=== PATIENT | male | born 1960 | race American Indian/Alaskan Native ===

== ENCOUNTER 2020-02-12 06:44 | Day surgery (SDC) | payer MEDICARE ==
[2020-02-12 07:45] LABS: Basophils % (Auto) 0.8 % (0.0-1.8); Eosinophils # (Auto) 0.2 K/mm3 (0.0-0.4); Eosinophils % (Auto) 3.2 % (0.0-4.3); Hematocrit 41.2 % (35.5-45.6); Hemoglobin 13.8 gm/dl (11.8-15.2); Lymphocytes # (Auto) 2.1 K/mm3 (1.2-5.4); Lymphocytes % (Auto) 35.9 % (13.4-35.0); Mean Corpuscular HGB Conc 33 % (32-34); Mean Corpuscular Volume 94 fl (84-94); Monocytes # (Auto) 0.8 K/mm3 (0.0-0.8); Monocytes % (Auto) 13.1 % (0.0-7.3); Platelet Count 162 K/mm3 (140-440); Red Blood Count 4.39 M/mm3 (3.65-5.03)
[2020-02-12 07:55] LABS: INR 0.98 (0.87-1.13)
[2020-02-12 07:56] LABS: Partial Thromboplastin Time 26.2 Sec. (24.2-36.6)
[2020-02-12 08:02] LABS: BUN/Creatinine Ratio 13; Blood Urea Nitrogen 13 mg/dL (9-20); Calcium 9.1 mg/dL (8.4-10.2); Hemolysis Index 16
--- NOTE | 2020-02-12 08:05 | Short Stay Summary ---
Short Stay Documentation Date of service: 02/12/20 Narrative H&P: The patient is a 60-year-old male with history of tobacco abuse and peripheral vascular disease who presented for his 1 year follow-up with complaints of left lower extremity rest pain. He had a previous history of bilateral lower extremity claudication that have recently progressed to rest pain. His follow- up included bilateral lower extremity arterial duplex with ABIs that revealed aortoiliac occlusive disease on the left lower extremity with bilateral tibial disease. He had a diagnostic arteriogram that demonstrated bilateral iliac artery stenosis with near total occlusion of the left external iliac artery as well as bilateral lower extremity tibial disease suggestive of Buerger's disease. Per the patient and his he has stopped smoking with the use of nicotine patches. He has no other complaints at this time. - History Past Medical History: PVD, other (Sciatica, history of PACs) Past Surgical History: Other (Back surgery) Social history: smoking (Recently stopped smoking after 50 pack years) - Allergies and Medications Current Medications: Allergies No Known Allergies Allergy (Verified 11/05/15 08:23) Home Medications Medication Instructions Recorded Confirmed Last Taken Type Diclofenac Sodium 75 mg PO BID #20 tablet. 11/05/15 Unknown Rx methOCARBAMOL [Robaxin TAB] 500 mg PO Q6H PRN #20 tablet 11/05/15 Unknown Rx traMADoL [Ultram 50 MG tab] 50 mg PO Q6HR PRN #14 tablet 11/05/15 Unknown Rx Active Medications Sodium Chloride (Nacl 0.9% 500 Ml) 500 mls @ 50 mls/hr IV DIRECT RENATA - Physical exam General appearance: no acute distress Lungs: Normal air movement Breasts: deferred Heart: Regular rate Gastrointestinal: normal Male Genitourinary: deferred Female Genitourinary: deferred Rectal Exam: deferred Extremities: no ischemia, abnormal (Palpable right femoral pulse with nonpalpable left femoral pulse, nonpalpable pedal pulses bilaterally) - Brief post op/procedure progress note Date of procedure: 02/12/20 Pre-op diagnosis: Bilateral Lower Extremity Symptomatic Peripheral Vascular Disease Post-op diagnosis: same Procedure: 1. Ultrasound-Guided Access Left Common Femoral Artery 2. Angioplasty and Stent of Left External Iliac Artery with 8 x 40 Angiosculpt Balloon, 8 x 80 IN.PACT Drug-Coated Balloon, and 3. Angioplasty and Stent of Right External Iliac Artery with 8 x 40 N.PACT Drug-Coated Balloon and 8 x 5 cm Viabahn Stent Graft 4. Closure of Left Femoral Arteriotomy with Pro-[place] Closure Device 5. Radiologic Supervision with Interpretation 6. Monitored Moderate Sedation (Total Anesthesia Time: 50 Minutes) Anesthesia: local Estimated blood loss: minimal Pathology: none Condition: stable - Disposition Condition at discharge: Good Disposition: DC-01 TO HOME OR SELFCARE Short Stay Discharge Plan Activity: other (No strenuous activity for 24 hours) Wound: remove dressing (48-hour) Follow up with: POLA WHATLEY MD [Staff Physician] - 14 Days Prescriptions: Aspirin EC [Halfprin EC] 81 mg PO QDAY #90 tablet. Clopidogrel [Plavix] 75 mg PO QDAY #90 tablet
[2020-02-12] MEDS: SODIUM CHLORIDE 0.9% 500 ML 500 ML IV SCH ×3 (08:37→11:50)
[2020-02-12] MEDS ORDERED: HEPARIN 10,000 UNITS/10 ML VIAL ONE (11:07)
[2020-02-12] MEDS ORDERED: LIDOCAINE (1%) 10 MG/1 ML VIAL 20 ML MDV ONE (11:07)
[2020-02-12] MEDS: fentaNYL 100 MCG/2 ML INJ ONE ×4 (11:38→12:23)
[2020-02-12] MEDS: HEPARIN/NS 5000 UNIT/500ML 1,000 ML IR ONE ×2 (11:39→11:50)
[2020-02-12] MEDS: LIDOCAINE (2%) 20 MG/1 ML VIAL 20 ML MDV INFILTRATI ONE ×2 (11:39→11:54)
[2020-02-12] MEDS: MIDAZOLAM 2 MG/2 ML INJ ONE ×3 (11:39→12:23)
[2020-02-12] MEDS ORDERED: MIDAZOLAM 2 MG/2 ML INJ ONE (12:22)
[2020-02-12] MEDS ORDERED: fentaNYL 100 MCG/2 ML INJ ONE (12:23)
[2020-02-12] MEDS ORDERED: HYDROcodone/ACETAMINOPHEN 5-325 MG TAB PO PRN (13:02)
[2020-02-12] MEDS ORDERED: CLOPIDOGREL 300 MG TAB PO ONE (14:02)
--- NOTE | 2020-02-12 14:28 | Operative Report ---
Operative Report Operative Report: Date of Procedure: 02/12/2020 Pre-operative Diagnosis: Symptomatic Bilateral Lower Extremity Peripheral Vascu lar Disease Post-operative Diagnosis: Same Procedure(s): 1. Ultrasound-Guided Access Left Common Femoral Artery 2. Angioplasty and Stent of Left External Iliac Artery with 8 x 40 Angiosculpt Balloon, 8 x 80 IN.PACT Drug-Coated Balloon, and 3. Angioplasty and Stent of Right External Iliac Artery with 8 x 40 N.PACT Drug-Coated Balloon and 8 x 5 cm Viabahn Stent Graft 4. Closure of Left Femoral Arteriotomy with Pro-[place] Closure Device 5. Radiologic Supervision with Interpretation 6. Monitored Moderate Sedation (Total Anesthesia Time: 50 Minutes) Surgeon: Joe Davey M.D. Wood Shingle Roofer: Jeremie Anesthesia: Monitored Moderate Sedation Total Anesthesia Time: 50 Minutes EBL: Minimal Counts: Correct Complications: None Condition: Stable Specimen: Stage Indication: The patient is a 60-year-old male with a history of peripheral vascular disease who presented to the office with a complaint of bilateral lower extremity claudication that has progressed to rest pain on the left. He had a diagnostic arteriogram that revealed bilateral external iliac artery stenosis as well as bilateral tibial occlusive disease suggestive of Buerger's disease. He is in need of endovascular intervention for his external iliac artery stenoses to relieve his rest pain. He was given the risk, benefits, and alternative procedures and consented to the procedure. Angiographic Findings: The left external iliac artery stenosis was estimated at 95%. After initial balloon angioplasty the artery was patent with less than 10% residual stenosis however there was a spiral dissection that was managed with an 8 x 5 cm Viabahn Stent Graft. This resulted in adequate treatment of the dissection with brisk flow of contrast through the left external iliac artery and no evidence of flow- limiting dissection or extravasation of contrast. The right external iliac artery stenosis was estimated at 75% and after initial angioplasty there was less than 10% residual stenosis however there was a dissection associated with this artery as well. This too was managed with an 8 x 5 cm Viabahn Stent Graft. The final result was less than 10% residual stenosis with no further evidence of flow-limiting dissection or extravasation of contrast. Description of Procedure: The patient was brought to the Business Relations Manager and laid in supine position. After a timeout was performed his left groin was prepped and draped in normal sterile fashion. Ultrasound was used to identify the left common femoral artery and confirm patency. Once patency was confirmed the overlying skin and soft tissue was anesthetized with lidocaine. An 11 blade was used to make a small stab incision and a curved hemostat was used to bluntly dissect down to the anterior surface of the left common femoral artery. A 21-gauge micropuncture needle was used with ultrasound guidance to enter the left common femoral artery and a 0.018 micropuncture wire was advanced into the artery. The needle was removed and a micropuncture sheath was placed by Seldinger technique. The wire and inner cannula were removed and a 0.035 Bentson wire was advanced into the artery. The micropuncture sheath was removed and a 5 Romanian sheath was placed by Seldinger technique. An arteriogram was performed to the sheath, identifying the area of stenosis in the proximal left external iliac artery. The stenosis was estimated at approximately 95% and approximately 1 to 2 cm from the origin of the internal iliac artery. I used a vertebral catheter with the Bentson wire to cross the stenosis. I then exchanged the 5 Romanian sheath for a 7 Romanian 11 cm sheath and at this point I systemically heparinized the patient with 4000 units of heparin IV. I reinserted the vertebral catheter and exchanged the Bentson wire for a 0.014 Spartacore Wire and then used an 8 x 40 Angiosculpt Balloon to perform angioplasty of the area of stenosis. This resulted in less than 10% residual stenosis however there was a spiral dissection. I used an 8 x 80 IN.PACT Drug-Coated Balloon to perform angioplasty of the area of stenosis with a persistent dissection so I treated this with a 8 x 5 cm Viabahn Stent Graft. The follow-up angiogram revealed reversal of contrast to the stent graft and no evidence of propagation of the dissection. The hypogastric remained patent. I advanced a Omni Flush catheter into the aorta and used a Bentson wire to advance the Omni Flush catheter and wire up and over the bifurcation and then exchanged the 7 Romanian 11 cm sheath for a 7 Romanian 45 cm destination sheath which I advanced over the bifurcation. I performed an angiogram identifying the stenosis in the right distal external iliac artery. I estimated the stenosis at approximately 75%. I performed angioplasty of the area of stenosis with an 8 x 40 IN.PACT Drug-Coated Balloon. This resulted in less than 10% residual stenosis however there was an associated dissection. I decided to treat this with a stent graft as well. I advanced the vertebral catheter over the Bentson wire and exchanged for a 0.018 V18 Wire and then treated the area of dissection with an 8 x 5 cm Viabahn Stent Graft was resulted in brisk flow of contrast through the stent graft without propagation of the dissection and no evidence of extravasation. I then remove the V 18 wire and pulled the sheath into the left external iliac artery. I advanced the Bentson wire into the aorta and then used a Pro-glide closure device to close the left femoral arteriotomy. A sterile dressing was then applied to the entry site and the patient was transported to the recovery area in stable condition.
[2020-02-12 14:33] VITALS: BP 120/84
== END 2020-02-12 14:05 | disposition home or self-care (01) ==
LOC: CATHLABREC 06:44
PROVIDERS: ATTEND Surgery Vascular Surgery
DX: I70.213 Atherosclerosis of native arteries of extremities with intermittent claudication, bilateral legs (principal); M19.90 Unspecified osteoarthritis, unspecified site; F17.210 Nicotine dependence, cigarettes, uncomplicated; Z79.82 Long term (current) use of aspirin; Z98.890 Other specified postprocedural states; Z72.89 Other problems related to lifestyle
CPT/HCPCS: 36415; 37221; 76937; 80048; 85025; 85610; 85730; 99156; 99157; C1725; C1760; C1769; C1874; C1887; C1894; J1644; J2250; J3010; J7040; Q9967

== ENCOUNTER 2020-02-28 09:16 | Day surgery (SDC) | payer MEDICARE ==
[2020-02-28 10:53] LABS: Basophils # (Auto) 0.1 K/mm3 (0.0-0.1); Basophils % (Auto) 1.2 % (0.0-1.8); Eosinophils # (Auto) 0.6 K/mm3 (0.0-0.4); Eosinophils % (Auto) 7.3 % (0.0-4.3); Hematocrit 39.4 % (35.5-45.6); Hemoglobin 13.4 gm/dl (11.8-15.2); Lymphocytes # (Auto) 1.9 K/mm3 (1.2-5.4); Lymphocytes % (Auto) 23.8 % (13.4-35.0); Mean Corpuscular HGB Conc 34 % (32-34); Mean Corpuscular Volume 91 fl (84-94); Monocytes # (Auto) 0.7 K/mm3 (0.0-0.8); Monocytes % (Auto) 8.6 % (0.0-7.3); Platelet Count 292 K/mm3 (140-440); Red Blood Count 4.31 M/mm3 (3.65-5.03); Red Cell Distribution Width 14.5 % (13.2-15.2)
[2020-02-28] MEDS ORDERED: SODIUM CHLORIDE 0.9% 500 ML 500 ML ONE (10:56)
[2020-02-28 11:06] LABS: INR 0.98 (0.87-1.13)
[2020-02-28 11:07] LABS: Partial Thromboplastin Time 27.5 Sec. (24.2-36.6)
[2020-02-28 11:08] LABS: BUN/Creatinine Ratio 9; Blood Urea Nitrogen 9 mg/dL (9-20); Calcium 9.4 mg/dL (8.4-10.2); Hemolysis Index 3
[2020-02-28] MEDS ORDERED: MIDAZOLAM 2 MG/2 ML INJ ONE (15:42)
[2020-02-28] MEDS ORDERED: fentaNYL 100 MCG/2 ML INJ ONE (15:42)
[2020-02-28] MEDS ORDERED: HEPARIN/NS 5000 UNIT/500ML 1,000 ML IR ONE (15:43)
[2020-02-28] MEDS ORDERED: LIDOCAINE 1%/EPINEPHRINE 1:100,000 VIAL (20 ML) INFILTRATI ONE (15:43)
[2020-02-28] MEDS ORDERED: HEPARIN 10,000 UNITS/10 ML VIAL ONE (15:43)
--- NOTE | 2020-02-28 16:58 | Short Stay Summary ---
Short Stay Documentation Date of service: 02/28/20 Narrative H&P: See H&P - History H&P: obtained from office - Allergies and Medications Current Medications: Allergies No Known Allergies Allergy (Verified 11/05/15 08:23) Home Medications Medication Instructions Recorded Confirmed Last Taken Type Aspirin EC [Halfprin EC] 81 mg PO QDAY #90 tablet. 02/12/20 02/28/20 02/27/20 Rx Clopidogrel [Plavix] 75 mg PO QDAY #90 tablet 02/12/20 02/28/20 02/27/20 Rx - Brief post op/procedure progress note Date of procedure: 02/28/20 Pre-op diagnosis: PVD with Stenosis of Bilateral internal iliac Arteries Post-op diagnosis: same Procedure: 1. Ultrasound-Guided Access Right Common Femoral Artery 2. Diagnostic Pelvic Angiogram 3. Angioplasty and Stent of Left Internal Iliac Artery with 5 x 30 mm Medtronic Resolute [place] Drug-Eluting Stent 4. Closure of Right Femoral Arteriotomy with Pro-[place] Closure Device 5. Radiologic Supervision with Interpretation 6. Monitored Moderate Sedation (Total Anesthesia Time: 25 Minutes) Anesthesia: MAC, local Surgeon: POLA WHATLEY Estimated blood loss: minimal Pathology: none Condition: stable - Disposition Condition at discharge: Good Disposition: DC-01 TO HOME OR SELFCARE Short Stay Discharge Plan Activity: other (No strenuous activity for 24 hours.) Wound: remove dressing (24-hour) Follow up with: POLA WHATLEY MD [Staff Physician] - 14 Days
[2020-02-28] MEDS ORDERED: HYDROcodone/ACETAMINOPHEN 5-325 MG TAB PO PRN (17:00)
--- NOTE | 2020-02-28 17:02 | Operative Report ---
Operative Report Operative Report: Date of Procedure: 02/28/2020 Pre-operative Diagnosis: Peripheral Vascular Disease with Bilateral Internal Wendie ac Artery Stenosis Post-operative Diagnosis: Same Procedure(s): 1. Ultrasound-Guided Access Right Common Femoral Artery 2. Diagnostic Pelvic Angiogram 3. Angioplasty and Stent of Left Internal Iliac Artery with 5 x 30 mm Medtronic Resolute [place] Drug-Eluting Stent 4. Closure of Right Femoral Arteriotomy with Pro-[place] Closure Device 5. Radiologic Supervision with Interpretation 6. Monitored Moderate Sedation (Total Anesthesia Time: 25 Minutes) Surgeon: Joe Davey M.D. Duck Operator: Jeremie Anesthesia: Monitored Moderate Sedation/Local Total Anesthesia Time: 25 Minutes EBL: Minimal Counts: Correct Complications: None Condition: Stable Specimen: None Indication: The patient is a 60-year-old male with a history of peripheral vascular disease who has known iliac artery stenosis that was previously discovered on angiogram. His external iliac artery disease was treated with bilateral stents however his stenosis of his bilateral internal iliac arteries was left untreated. He presented to the office with complaints of erectile dysfunction and inquired about the flow to his pelvic area. I discussed the findings of his angiogram which included a 95% stenosis of his left internal iliac artery and severe stenosis of the right internal iliac artery with atretic outflow vessels. He was interested and possibly improvement of flow in hopes of treating his erectile dysfunction. He was given the risk, benefits, and alternative procedures and consented to the procedure. Angiographic Findings: The angiogram revealed 95% stenosis at the origin of the left hypogastric art reese. The internal pudendal artery was patent with approximately 20 to 30% stenosis in the proximal artery however the remainder of the artery was patent without evidence of flow-limiting stenosis. After intervention there was less than 10% residual stenosis of the origin of the left hypogastric artery with preserved flow within the left external iliac artery stent. Description of Procedure: The patient was brought to the Frame Straightener and laid in supine position. After a timeout was performed his right groin was prepped and draped in normal sterile fashion. Ultrasound was used to identify the right common femoral artery and confirm patency. Once patency was confirmed the overlying skin and soft tissue was anesthetized with lidocaine. An 11 blade was used to make a small stab incision and a curved hemostat was used to bluntly dissect down to the anterior surface of the right common femoral artery. A 21-gauge micropuncture needle was used with ultrasound guidance in the right common femoral artery and a 0.018 micropuncture wire was advanced to the artery. The needle was removed and a micropuncture sheath was placed by Seldinger technique. The inner cannula and wire were removed and a 0.035 Bentson wire was advanced into the aorta under fluoroscopy. The micropuncture sheath was removed and a 5 Belgian sheath was placed by Seldinger technique. An Omni Flush catheter was used to advance the Bentson wire up and over the bifurcation and into the distal external iliac artery. I then exchanged the 5 Belgian sheath for a 6 Belgian 45 cm destination sheath by Seldinger technique. At this point the patient was systemically heparinized with 3000 units of heparin IV. I then used a vertebral catheter and a 0.014 Choice PT wire to cannulate the left hypogastric artery. I advanced the wire into the distal internal pudendal artery under fluoroscopy. I performed an additional angiogram to abhijit the area of stenosis and then advanced a 5 x 30 mm Medtronic Resolute [place] Drug-Eluting Stent into position and deployed it. This resulted in less than 10% residual stenosis and although the stent was deployed approximately 5 mm above the previously placed external iliac artery stent this did not compromise flow within the external iliac artery stent. At this point I remove the Choice PT wire and pulled the sheath back into the right external iliac artery. I advanced the Bentson wire into the aorta and then after removing the sheath used a Pro-glide closure device to close the right femoral arteriotomy. A sterile dressing was then applied to the entry site in the right groin and the patient was transported to the recovery area in stable condition.
[2020-02-28 17:46] VITALS: BP 122/75
== END 2020-02-28 17:53 | disposition home or self-care (01) ==
LOC: CATHLABREC 09:16
PROVIDERS: ATTEND Surgery Vascular Surgery
DX: I70.213 Atherosclerosis of native arteries of extremities with intermittent claudication, bilateral legs (principal); M19.90 Unspecified osteoarthritis, unspecified site; Z79.899 Other long term (current) drug therapy; Z79.82 Long term (current) use of aspirin; Z87.891 Personal history of nicotine dependence; Z98.890 Other specified postprocedural states
CPT/HCPCS: 36415; 37221; 75736; 76937; 80048; 85025; 85610; 85730; 99156; 99157; C1760; C1769; C1874; C1887; J1644; J2250; J3010; J7040; Q9967